=== PATIENT | female | born 1985 | race Hispanic/Latino ===

== ENCOUNTER 2020-03-15 01:31 | Emergency (ER) | payer OTHER ==
[2020-03-15] MEDS ORDERED: IBUPROFEN 600 MG TABLET ONE (02:04)
[2020-03-15] MEDS ORDERED: NEOMYCIN/POLYMYXIN/HC OTIC SUSP 10ML BOTTLE ONE (02:04)
[2020-03-15] MEDS ORDERED: ACETAMINOPHEN EXTRA STRENGTH 500 MG TABLET ONE (02:05)
[2020-03-15] MEDS ORDERED: AMOXICILLIN 500 MG CAPSULE PO ONE (02:05)
== END 2020-03-15 02:28 | disposition home or self-care (01) ==
LOC: EDH 01:31
DX: H66.91 Otitis media, unspecified, right ear (principal); H60.91 Unspecified otitis externa, right ear